=== PATIENT | female | born 1990 | race Caucasian/White ===

== ENCOUNTER 2019-05-03 09:37 | Emergency (ER) | payer MEDICAID, SELFPAY ==
[2018-11-15 09:26] VITALS: BMI 35.1
[2019-05-03 09:38] VITALS: BP 116/73; PULSE 100; RESP 18; TEMP 36.6; O2SAT 98; BMI 32.8
--- NOTE | 2019-05-03 09:58 | ED.DCSUM_ITS ---
History of Present Illness Chief Complaint: Shortness of Breath Detail of Chief Complaint: Pneumonia Informant: Patient Onset: Days Context: Gradual Onset Current Severity: Moderate Maximum Severity: Moderate Narrative: Patient presents with pneumonia. She became ill 4 days ago and woke the next morning with body aches and chills in addition to cough. She was seen in the emergency room at [facility] in [place]. She was diagnosed with pneumonia in her right lung. She was given a breathing treatment and a dose of steroids in the hospital. She was given prescriptions for Augmentin, Zofran, prednisone, and an inhaler. She states when she went to the pharmacy it was over $100 for her prescriptions she did not have the money and therefore did not fill them. She states yesterday she felt okay but felt worse again today. She had subjective fevers yesterday evening. Past Medical History - Allergies and Home Meds Allergies/Adverse Reactions: Allergies No Known Allergies Allergy (Verified 05/03/19 09:41) Primary Care Physician: Care Physician,No Primary [Primary Care Provider] - Prior records reviewed: Yes Past Medical History: - - Reviewed Lives: With Family Smoking Status: Current every day smoker Review of Systems General: Reports: Fever, Subjective. Denies: Chills Eyes: Denies: Visual changes - bilaterally ENT: Denies: Bilateral ear pain Cardiovascular: Denies: Chest pain Respiratory: Reports: Dyspnea, Cough Gastrointestinal: Denies: Abdominal pain, Nausea, Vomiting, Diarrhea Genitourinary: Denies: Dysuria Musculoskeletal: Reports: Myalgias Skin: Denies: Rash Neurological: Denies: Weakness, Parasthesia Hematologic: Denies: Easy bruising Allergy: Denies: Uticaria Physical Exam Vital Signs/Narrative: Vital Signs Temp Pulse Resp BP Pulse Ox 05/03/19 09:38 98 F 100 18 116/73 98 Inital Vital Signs reviewed: Yes General: Well nourished, Well developed Head: Normocephalic Eyes: EOMI ENT: Moist mucous membranes Neck: Supple Cardiovascular: Regular rate, Regular rhythm Respiratory: No distress, - - Very mild rhonchi bilaterally. Scant expiratory wheeze. Patient is lying back in the bed with her head elevated only 30 degrees and is breathing comfortably. Abdomen: Soft, Nontender Back: Nontender Extremities: Nontender, No edema Skin: Normal color Neurological: Alert, Oriented x3 Psychological: Normal affect Diagnostic/Tx/Re-eval - Medical Decision Making Patient was given a dose of Augmentin here along with a DuoNeb and p.o. prednisone. On repeat evaluation rhonchi improved. She does have scattered wheezing. Social work was able to help with pricing on her medications. It looks as though her medications will cost about $35 and patient is agreeable to this. Patient be discharged. She already has her prescriptions from her recent ED visit at home to fill. ED Disposition - Plan for ED Patient: Disposition: Home or Assisted Living Diagnosis: Pneumonia Instructions: PNEUMONIA (Adult) Referrals: Tracie Thao MD [STAFF PHYSICIAN] - As Needed
[2019-05-03 10:05] VITALS: PULSE 93; RESP 16
[2019-05-03] MEDS: Ipratropium/Albuterol Sulfate 3 ML AMPUL.NEB INHALATION (10:06)
[2019-05-03] MEDS: predniSONE 20 MG Tablet 60 MG PO (10:09)
[2019-05-03] MEDS: Amox/Clavulanate 875 MG Tablet PO (10:09)
--- NOTE | 2019-05-03 10:46 | CM.ED ---
Social Work Consult: Rx assistance Informant: Dr. Leon Met with patient in room. Introduced self as well as social human services assistants role. Patient stating to not be able to afford prescriptions due to 'my insurance lapsing. Patient stating to have been active with [employer] until early 2018. Patient stating to have had a meeting with [employer] [facility] today to reinstate patient insurance and that patient needs to provide copies of pay stubs in order to reactive [employer]. Patient stating to have not been able to go to meeting at [facility] due to not feeling well today. This social human services assistants able to provide patient with discount cards with approximate cost being $40-$50. Patient stating to be able to afford this. This social human services assistants encouraging patient to follow up with paperwork for insurance as patient will have medical bills. Patient voicing understanding and intention to follow up with [employer] [facility]. Patient denies any restrictions to getting to [employer] [facility] other then feeling sick today. Patient did have a support person present in the room as well. All question answered. SHANIQUE Fairbanks
[2019-05-03 10:50] VITALS: BP 119/64; PULSE 96; RESP 19; O2SAT 97
== END 2019-05-03 10:57 | disposition home or self-care (01) ==
PROVIDERS: Emergency Provider Emergency Medicine
DX: J18.9 Pneumonia, unspecified organism (principal); F17.200 Nicotine dependence, unspecified, uncomplicated
CPT/HCPCS: 94640; 99282